=== PATIENT | female | born 1965 | race Caucasian/White ===

== ENCOUNTER 2021-02-19 05:12 | Inpatient (IN) ==
--- NOTE | 2021-01-21 08:26 | History & Physical Report ---
Date of Service January 21, 2021 date of surgery: 02/19/21 Procedure: Right Total Knee Arthroplasty Surgeon: Kenneth Diaz Assessment & Plan (1) Arthritis of right knee: Plan: Risks and benefits of procedure discussed in detail today, patient would like to proceed with a Right total knee replacement at [facility] as scheduled. will obtain medical clearance from Dr Carson prior to surgery as well as obtain PATs at [facility]. Will place on ASA 81mg po bid x 1 month post op, f/u 2 weeks post op for routine post-operative care and x-ray, sooner if having any problems. will make arrangements for HHPT at the time of discharge. At this point in time, has failed conservative measures and would like to proceed with surgical intervention. The risks and benefits have been discussed including, but not limited to, risk of infection, nerve injury, stiffness, loss of motion, failure to improve, etc. Reasonable outcomes and options of treatment were discussed. An explanation of appropriate alternatives to the procedure that may be advantageous were discussed and their risks and benefits, as well as the risks and benefits of not proceeding with treatment. I offered to answer any additional inquiries concerning the treatment involved. All the patient's questions were answered. The patient is agreeable, understanding of the treatment plan and alternatives, and wishes to proceed with the treatment plan. History of Present Illness Chief Complaint: Right knee pain Primary Care Provider: RONIT PCP Mirella is a 55 year old female who complains of right knee pain, presents for pre-op evaluation prior to a right total knee replacement by Dr Diaz at [facility]. she complains of pain, decreased range of motion, instability and stiffness in her right knee. Currently the patient states that the symptoms are moderate- severe and is described as aching, sharp and throbbing. her symptoms occur continuously and currently rated at 7/10. The symptoms are aggravated by ascending stairs, daily activities, first steps while awake walking. Prior NSAIDs include IBU, Meloxicam and Aleve. she has been treated with previous cortisone and visco injections in the past without much relief. Allergies Allergy/AdvReac Type Severity Reaction Status Date / Time No Known Allergies Allergy Unverified 01/21/21 10:17 Home Medications Medication Instructions Recorded Confirmed Type acetaminophen 500 mg tablet 500 mg PO QID PRN 01/21/21 01/21/21 History (Tylenol Extra Strength) valsartan 160 mg capsule 160 mg PO QAM 01/21/21 01/21/21 History Past Med/Surg History Medical History GERD (gastroesophageal reflux disease) diet controlled HTN (hypertension) Morbid obesity with BMI of 45.0-49.9, adult Osteoarthritis Snores Spinal stenosis Surgical History History of x 2 History of colonoscopy History of lumbar fusion History of ovarian cystectomy History of tonsillectomy Family History Other No family history of adverse response to anesthesia Social History Smoking Status: Never smoker Second Hand Exposure: Yes (hx); Do You Dip or Chew Tobacco: No; Hx Alcohol Use: Yes Hx Substance Use: No Preferred Language: Burundian Communication Ability: Effective Trapeze Artist Required: No Beliefs That Will Affect Care: None Current Living Situation Comment: pt and her children Feels Safe at Home: Yes Safety Concerns: Feels Safe At This Time Assistive Devices: Cane and Glasses Review of Systems Review of Systems: All systems reviewed & are unremarkable except as noted in HPI & below Constitutional: no fever, no chills and no sweats Respiratory: no cough and no dyspnea Cardiovascular: no chest pain, no dyspnea and no orthopnea Gastrointestinal: no abdominal pain, no nausea and no vomiting Musculoskeletal: as per Subjective / HPI Physical Exam Physical Exam: HT: 5'4" WT: 288lb Pulse: 85 BP: 177/99 Constitutional: WD/WN, vitals as above no acute distress Respiratory: normal respiratory effort, lungs clear to auscultation no respiratory distress, no labored breathing and does not use accessory muscles Cardiovascular: RRR, no murmur, no edema Gastrointestinal (Abdomen): normal bowel sounds, soft, nontender, no hepatosplenomegaly Musculoskeletal: Knee: + knee abnormal to inspection (RIGHT KNEE- ), + effusion (+1 effusion), + limited ROM of knee (ROM 0/3/110), + knee ROM with crepitation, + joint line tenderness (medial joint line) and + Valeria's sign positive; no deformity, no skin erythema, no ecchymosis, no valgus laxity, no varus laxity, anterior drawer test negative, Ramón's sign negative and pivot shift test negative Results & Data Results & Data ([facility]) Diagnostic Findings Right Knee X-ray: Right knee series showing advanced degenerative changes to the right knee, narrowing of the medial compartment and patello-femoral joint with patellar spurring noted, findings showing joint space narrowing of the medial compartment and patello-femoral joint, osteophyte formation and subchondral sclerosis noted. overall varus alignment. no acute bony pathology noted.
--- NOTE | 2021-01-21 11:35 | PAT Medication Instructions ---
Medication Instructions Date of Service January 21, 2021 Home Medications acetaminophen 500 mg tablet (Tylenol Extra Strength) 500 mg PO QID PRN valsartan 160 mg capsule 160 mg PO QAM DO NOT take the morning of surgery valsartan 160 mg capsule 160 mg PO QAM Take morning of surgery With a small sip of water, OTHERWISE NOTHING TO EAT OR DRINK AFTER MIDNIGHT: acetaminophen 500 mg tablet (Tylenol Extra Strength) 500 mg PO QID PRN (okay to take up to 4 hours prior to surgery if needed) Take evening before surgery acetaminophen 500 mg tablet (Tylenol Extra Strength) 500 mg PO QID PRN (if needed) Other Notes If you have any questions please call us at [phone] or [phone] or [phone] or [phone]
--- NOTE | 2021-01-23 08:24 | Anesthesiology Consultation ---
Date of Service January 23, 2021 Assessment & Plan (1) Encounter for pre-operative examination: - PCP pre-op evaluation 01/30/2021. - check urine am DOS. - Outpatient joint assessment: Patient is currently scheduled for inpatient pathway. If re-evaluated pending system levels during current pandemic/surgeon requests outpatient pathway, patient is not recommended candidate for outpatient joint program from anesthesia standpoint. - COVID screening: Per assessment on 01/23/2021: Travel screen negative, no known COVID-19 positive contacts or current COVID-19 related symptoms. Surgeon arranging preop COVID testing, scheduled 02/25/2021 [place]. Awaiting results. Chart Review Chart Review: Acceptable Risk for Surgery (pending most recent PCP note) and Patient seen in Pre Admission Testing Teaching & Discussion Pre-Anesthesia Teaching/Discussion Notes: Instructed NPO after midnight before surgery, except medications with 15 cc of water. Medication instructions provided according to the PAT guidelines. History Surgery Operation Date: 02/19/21 07:15 Proposed Procedures p Right Total Knee Arthroplasty - Kenneth Diaz DO Height/Weight Height: 5 ft 4 in Weight: 130.6 kg Allergies Allergy/AdvReac Type Severity Reaction Status Date / Time No Known Allergies Allergy Unverified 01/21/21 10:17 Medications Home Medications Medication Instructions Recorded Confirmed Last Taken acetaminophen 500 mg tablet 500 mg PO QID PRN 01/21/21 01/21/21 Unknown (Tylenol Extra Strength) valsartan 160 mg capsule 160 mg PO QAM 01/21/21 01/21/21 Unknown Past Medical History Medical History (Updated 01/23/21 @ 08:46 by Maira Rowley PA-C) GERD (gastroesophageal reflux disease) occasional, diet controlled History of blood transfusion post-op 1984 HTN (hypertension) controlled, stable per pt Morbid obesity with BMI of 45.0-49.9, adult Osteoarthritis Snores Snores, occasionally snores herself awake, pt "suspects sleep apnea" denies sleep studies Spinal stenosis Patient denies h/o stroke, seizures, heart attack, heart failure, DM, or blood clots. Exercise / Class Metabolic Activity II 4-5 Yardwork/Stairs/Walk up hill (denies CP or SOB with 1 FOS, taken slowly due to bilat knee pain at this time) Past Family History Family History Other No family history of adverse response to anesthesia Past Surgical History Surgical History History of x 2 History of colonoscopy History of lumbar fusion History of ovarian cystectomy History of tonsillectomy Past Anesthesia History No Hx of Anesthesia Complications and No Family Hx of Anesthesia Complications History of PONV History of PONV (after a ) and Hx of Motion Sickness Social History Smoking Status: Never smoker Do You Dip or Chew Tobacco: No Hx Alcohol Use: Yes alcohol intake frequency: holidays/special occasions only Hx Substance Use: No substance use type: does not use Review of Systems Patient denies chest pain, shortness of breath, dyspnea on exertion, fever, chills, cough, wheezing, or palpitations. Physical Exam Vital Signs Vitals BP 137/89 P 69 TEMP 98.6 SP02 97% on RA RESP 17 Physical Full cervical extension range of motion without pain Full TMJ range of motion TMD 3 finger breaths Mallampati Score 3 Dentition: intact, denies missing, chipped or loose teeth, caps/crowns, implants or bridges Lungs: normal respiratory effort. Clear throughout to auscultation, no adventitious breath sounds Cardiac: regular rate and rhythm, no murmurs noted Carotid arteries: negative bruit bilat Extremities: no distal extremity edema Lab Results Anesthesia Preop Results Results Anesthesia Widget: WBC 10.58 K/uL (4.8-10.8) 01/23/21 Hgb 15.1 g/dL (12.0-16.0) 01/23/21 Hct 45.8 % (37-47) 01/23/21 Plt 317 K/uL (130-400) 01/23/21 Na 140 mmol/L (136-145) 01/23/21 K 4.7 mmol/L (3.5-5.1) 01/23/21 Cl 108 mmol/L (98-107) H 01/23/21 CO2 27 mmol/L (21-32) 01/23/21 BUN 15 mg/dl (7-18) 01/23/21 Creat 0.73 mg/dl (0.6-1.2) 01/23/21 Glucose Level 103 mg/dl (70-99) H 01/23/21 PT 10.3 Seconds (9.0-12.0) 01/23/21 PTT 27.7 Seconds (21.0-31.0) 01/23/21 INR 1.0 (0.9-1.1) 01/23/21 HA1c 5.8 % (4.5-5.6) H 01/23/21 Urine Color Dark Yellow 01/23/21 Urine Appearance Clear (Clear) 01/23/21 Urine pH 5.5 (4.5-7.5) 01/23/21 Urine Specific Presto 1.027 (1.000-1.030) 01/23/21 Urine Protein Negative (Negative) 01/23/21 Urine Glucose (UA) Negative (Negative) 01/23/21 Urine Ketones Negative (Negative) 01/23/21 Urine Blood Negative (Negative) 01/23/21 Urine Nitrite Negative (Negative) 01/23/21 Urine Bilirubin Negative (Negative) 01/23/21 Urine Urobilinogen Negative (Negative) 01/23/21 Urine Leukocyte Esterase 1+ (Negative) H 01/23/21 Urine WBC (Auto) 10-30 /hpf (0-5) H 01/23/21 Urine RBC (Auto) 5-10 /hpf (0-4) H 01/23/21 Urine Hyaline Casts (Auto) 1-5 /lpf (0-5) 01/23/21 Urine Epithelial Cells (Auto) 10-20 /lpf (0-5) H 01/23/21 Urine Bacteria (Auto) Negative (Negative) 01/23/21 Blood Type A Positive 01/23/21 Antibody Screen NEGATIVE 01/23/21 Testing Electrocardiogram Date: 01/23/21 Normal sinus rhythm, rate 63 bpm. "Normal ECG" Inverted T waves have replaced nonspecific T wave abnormality in inferior leads. Nonspecific v isolated T wave changes in lead III, nonspecific changes in II and aVF. Chest X-Ray Date: 01/23/21 No acute process.
[2021-02-19] MEDS ORDERED: FAMOTIDINE 20 MG TAB PO SCH (06:00)
[2021-02-19] MEDS ORDERED: METOCLOPRAMIDE HCL 10 MG TABLET PO SCH (06:00)
[2021-02-19] MEDS ORDERED: TRANEXAMIC ACID 1,000 MG **IV Pre-op IV SCH (06:00)
[2021-02-19] MEDS ORDERED: GABAPENTIN 900 MG DOSE PO SCH (06:00)
[2021-02-19] MEDS ORDERED: ROPIVACAINE 0.5% HCL/PF 150 MG, BUPIVACAINE 0.75% MPF 20 ML, EPINEPHrine 30MG/30ML (OR ... INSTIL SCH (06:00)
[2021-02-19] MEDS ORDERED: LR 500ML BOLUS, THEN 15ML/HR IV SCH (06:00)
[2021-02-19] MEDS ORDERED: CeleBREX 200 MG CAP PO SCH (06:00)
[2021-02-19] MEDS ORDERED: ACETAMINOPHEN 500 MG TAB PO SCH (06:00)
[2021-02-19] MEDS ORDERED: oxyCODONE HCL 10 MG TABCR (OxyCONTIN) PO SCH (06:00)
[2021-02-19] MEDS ORDERED: TRANEXAMIC ACID 1,000 MG **IV Intra-op IV SCH (06:00)
[2021-02-19] MEDS ORDERED: KETAMINE 50 MG/5 ML SYRINGE ONE (06:22)
[2021-02-19] MEDS ORDERED: MIDAZOLAM HCL 1 MG/ML 2ML VIAL ONE (06:22)
[2021-02-19] MEDS ORDERED: fentaNYL citrate 100 MCG/2 ML VIAL ONE (06:22)
[2021-02-19] MEDS ORDERED: EPINEPHrine INJ 1 MG/ML AMP ONE (06:24)
[2021-02-19] MEDS ORDERED: BUPIVACAINE 0.5 % 5 MG/1 ML PF 10ML VIAL ONE (06:24)
[2021-02-19] MEDS ORDERED: ROPIVACAINE 0.5% 5 MG/ML 30 ML VIAL ONE (06:25)
[2021-02-19] MEDS ORDERED: ORTHO JOINT ANESTHETIC ONE (07:02)
--- NOTE | 2021-02-19 07:18 | History & Physical Bridge Note ---
Date of Service February 19, 2021 History & Physical Bridge Note I have examined the patient, reviewed the History & Physical and in the interval since the performance of the History & Physical I have noted the following changes of clinical significance: no changes noted
[2021-02-19] MEDS ORDERED: LIDOCAINE 2% 2 ML VIAL/AMP(20MG/ML) INFIL ONE (07:51)
[2021-02-19] MEDS ORDERED: PHENYLEPHRINE 100MCG/ML 5ML SYR ONE (07:51)
[2021-02-19] MEDS ORDERED: PROPOFOL IV EMULSION 10 MG/ML 20 ML VIAL IV ONE ×3 (07:51→08:23)
[2021-02-19] MEDS ORDERED: ONDANSETRON INJ 2 MG/ML 2 ML VIAL ONE (07:51)
[2021-02-19] MEDS ORDERED: KETOROLAC 30 MG/ML VIAL ONE (07:51)
[2021-02-19] MEDS ORDERED: DEXAMETHASONE SOD INJ 4 MG/ML VIAL ONE (07:51)
[2021-02-19] MEDS ORDERED: GLYCOPYRROLATE 0.2 MG/ML VIAL ONE (07:51)
[2021-02-19] MEDS ORDERED: ePHEDrine sulfate 50 MG/ML SYR ONE (08:12)
[2021-02-19] MEDS ORDERED: ePHEDrine sulfate 50 MG/ML AMP IV PRN (08:38)
[2021-02-19] MEDS ORDERED: ATROPINE SULFATE 0.1 MG/ML 10ML SYR IV PRN (08:38)
--- NOTE | 2021-02-19 08:53 | Operative Report ---
Post Operative Report Pre & Post Diagnosis Operation Date: 02/19/21 07:15 Pre-Op Diagnosis: Osteoarthritis, Right Knee Post-Op Diagnosis: Osteoarthritis, Right Knee I identified the patient and participated in the time-out.: Yes Procedure Operation Date: 02/19/21 07:15 Actual Procedures p Right Total Knee Arthroplasty(Right)Utilizing [employer] 2 patient matched size femur 6 tibia for poly Patella 32 15 utilizing [employer] 2 - Kenneth Diaz DO Surgeon Kenneth Diaz DO Policyholder Information Clerk Buzz LIU Estimated Blood Loss 5 Findings Consistent with Post-Op Diagnosis Patient presents with severe end-stage tricompartmental degenerative joint disease 10 degree flexion contracture varus alignment eburnated [id number] moderate marginal osteophyte subchondral sclerosis Specimens Bone and cartilage Drains Medium bore Hemovac Anesthesia Type MAC Epidural Regional Complications none Disposition Accompanied Patient To Recovery: No Disposition: Recovery Room Indications Patient presents with severe end-stage DJD failing Conservative Management Getting Physical Therapy Anti-Inflammatories Relative Rest Activity Modification Corticosteroid Injection of Viscosupplementation above Intraoperative Findings Were Noted Description of Procedure After proper prepping and draping of the Right lower extremity anterior midline incision was made over the region of the extensor extensor mechanism after meticulous hemostasis was obtained and maintained in subcutaneous tissues a medial parapatellar incision was made The patella was subluxed lateralward the medial lateral gutter were cleaned from any hypertrophic synovitis and scar tissue of the distal femoral block was placed and the distal femoral osteotomy cut was made subsequently the chamfers anterior and posterior osteotomy cuts were made utilizing the 4-in-1 block the tibia was subsequently subluxed an teriorward medial and ateral meniscal remnants were excised in their entirety remnants of the anterior and posterior cruciate ligaments were excised in their entirety excellent exposure of the proximal tibia was obtained the tibial osteotomy guide was placed on the proximal tibial osteotomy cut was made once again the knee was irrigated with copious amounts of sterile saline solution the patella was subsequently everted lateralward thickened scar tissue around the patella was removed the patella was subsequently cut utilizing a freehand technique and was drilled prepared for final preparation and placement of patella socially flexion-extension gaps were checked and the equal and symmetric trials were placed to the appropriate femoral and tibial trials with poly-spacer being placed for equal flexion and extension gaps and full range of motion including extension to 0 and flexion to 140 the trial components after having been taken to recovery range of motion was subsequently removed meticulous hemostasis was obtained and maintained subsequently a knee block injection of joint cocktail including ropivacaine 0.5% 150 mg. Bupivacaine 0.5% epinephrine 1-200,030 mL's toradol 30 mg dexamethasone 4 mg ketamine 10 mg clonidine 100 micrograms normal saline solution 30 mg was infiltrated into the soft tissues of the posterior knee medial lateral gutters and periosteal synovium special a ttention was paid to protect neurovascular structures at all times subsequently trial components having been removed the knee was irrigated with sterile saline solution. debris was removed the proximal tibia was subsequently prepared and was made ready for the placement of the tibial component tibial component was also cemented and tamped into position the femoral component was subsequently placed and cemented in the position the patellar component was subsequently cemented in position because hemostasis once again obtained and maintained wound having been thoroughly irrigated with debridement and debridement lavage was performed as well as a medial parapatellar incision closed with #1 Vicryl in interrupted fashion subcutaneous was closed with #2 Vicryl skin was closed with skin clips. PA-C was necessary for prepping and drapping as well as wound closure of deep fascia Sub cutaneous tissue and skin and was necessary for the case. A sterile compressive dressing was placed patient was taken to recovery in stable condition of report dictated by Joe I attest to the content of the Intraoperative Record and any orders documented therein. Any exceptions are noted below. I attest to the content of the Intraoperative Record and any orders documented therein. Any exceptions are noted below.
--- NOTE | 2021-02-19 10:08 | Anesthesiology Progress Note ---
Date of Service February 19, 2021 Anesthesia Post Procedure Vital Signs Vital Signs: Temp Pulse Pulse Resp BP Pulse Ox 02/19/21 09:55 36.4 C L 60 14 107/62 96 02/19/21 09:45 70 18 110/58 L 97 02/19/21 09:35 67 14 101/54 L 99 02/19/21 09:25 36.3 C L 89 16 101/62 97 02/19/21 05:44 37.3 C 97 H 18 131/73 95 Pain Intensity Right Knee: Pain Intensity: 1 Transfer of Care Handoff Completed per policy Notes Mental Status: alert / awake / arousable Patient Amnestic to Procedure: Yes Nausea / Vomiting: adequately controlled Pain: adequately controlled Airway Patency, RR, SpO2: stable & adequate BP & HR: stable & adequate Hydration State: stable & adequate Neuraxial Anesthesia: was administered and sensory block is resolving Anesthetic Complications: no major complications apparent
[2021-02-19] MEDS ORDERED: NALOXONE HCL 0.4 MG/1 ML VIAL/CARP IV PRN (10:20)
[2021-02-19] MEDS ORDERED: bisacodyL 10 MG SUPP PR PRN (10:20)
[2021-02-19] MEDS ORDERED: ONDANSETRON INJ 2 MG/ML 2 ML VIAL IV PRN (10:20)
[2021-02-19] MEDS ORDERED: SODIUM CHLORIDE 0.9% 1000ML 1,000 ML IV SCH (10:20)
[2021-02-19] MEDS ORDERED: MAGNESIUM HYDROXIDE SUSP 30 ML UDC PO PRN (10:20)
[2021-02-19] MEDS ORDERED: HYDROmorphone INJ 0.5 MG/0.5 ML SYR IV PRN (10:20)
--- NOTE | 2021-02-19 10:31 | XRay Report ---
XR knee RT 1 or 2V routine CLINICAL HISTORY: Surgical Post Op. Status post knee replacement COMPARISON STUDY: No previous studies for comparison. TECHNIQUE: 2 right knee views FINDINGS: The patient is status post total knee replacement. The prosthetic components are in anatomi c alignment with no acute abnormality seen. Air is present within the soft tissues from the procedure . Skin shaheen are seen anteriorly. Surgical drain is also present. IMPRESSION: Status post total knee replacement. ACT 112: Negative or not required by law. Electronically signed by: Kishore Martines M.D. 02/19/2021 10:30 AM
--- NOTE | 2021-02-19 10:35 | Hospitalist Consultation ---
Date of Consultation February 19, 2021 Assessment & Plan (1) Status post total right knee replacement: - Pain management, bowel regimen and DVT ppx per the primary team - PT/OT consults - Follow am CBC to monitor for acute blood loss, last hgb in Dec was 15.1 - Continue ASA 81 mg BID (2) HTN (hypertension): - May continue HCTZ, valsartan as per home medications - pt reports recently placed on these medications. (3) Prediabetes: - Last A1C = 5.8 on 01/23/21 - Not on any medication at home - Continue HH/DM II and discussed exercise and diet at bedside. Encouraged healthy snacking with substitue foods such as nuts, fruits without added sugar, vegetables. (4) Morbid obesity with BMI of 45.0-49.9, adult: - BMI of 49.2, diet and exercise to be encouraged as above DVT ppx: teds, scds, ASA81 mg BID Code: Full Dispo: From home, will remain in the hospital x 1-2 more days Thank you for involving us in the care of Ms. Ovalle. Please do not hesitate to call with questions or concerns. At this time medicine service will follow along. Supervising Physician Co-Signing Physician Notes Patient seen and examined Findings and plans as detailed by Cheyanne Scanlon PA-C History of Present Illness Reason for Consultation: Medical management Requesting Physician: Dr. Diaz Attending Physician: Kenneth Diaz DO History of Present Illness This is a 55 yo F with PMHx of osteoarthritis, Prediabetes, HTN, JOLENE, who presents for total right knee replacement by Dr. Diaz on 02/20/20. The patient is doing very well overall s/p surgery. Denies any pain, still a bit numb in her lower extremity by is able to move it without difficulty. Pt is tolerating water without difficulty, but has not trialed food yet. Last BM was this morning prior to surgery. Pt hasn't yet urinated since surgery. She lives at home with adult children who will be able to help her at home. She anticipates having outpatient PT/OT when she goes home. Pt also states she is aware of her elevated A1C and is going to attempt more diet and exercise since having knee surgery and increasing her mobility. Allergies Allergy/AdvReac Type Severity Reaction Status Date / Time No Known Allergies Allergy Verified 02/19/21 05:47 Home Medications Medication Instructions Recorded Confirmed Type acetaminophen 500 mg tablet 500 mg PO QID PRN 01/21/21 02/19/21 History (Tylenol Extra Strength) valsartan 160 mg capsule 160 mg PO QAM 01/21/21 02/19/21 History hydrochlorothiazide 25 mg PO QAM 02/12/21 02/19/21 History paroxetine HCl 20 mg PO QAM 02/12/21 02/19/21 History acetaminophen 500 mg tablet 1,000 mg PO Q8 14 Days #84 tab 02/19/21 Rx (Tylenol Extra Strength) aspirin 81 mg tablet,delayed 81 mg PO BID 30 Days #60 tab 02/19/21 Rx release cefadroxil 500 mg capsule 500 mg PO BID #28 cap 02/19/21 Rx Patient History Medical History (Updated 02/19/21 @ 10:38 by Cheyanne Scanlon PA-C) GERD (gastroesophageal reflux disease) occasional, diet controlled History of blood transfusion post-op 1984 HTN (hypertension) controlled, stable per pt Morbid obesity with BMI of 45.0-49.9, adult Osteoarthritis Prediabetes [facility] records Snores Snores, occasionally snores herself awake, pt "suspects sleep apnea" denies sleep studies Spinal stenosis Surgical History (Updated 02/19/21 @ 10:38 by Cheyanne Scanlon PA-C) History of x 2 History of colonoscopy History of lumbar fusion History of ovarian cystectomy History of tonsillectomy Family History Other No family history of adverse response to anesthesia Social History Smoking Status: Never smoker Second Hand Exposure: Yes (hx); Do You Dip or Chew Tobacco: No; Hx Alcohol Use: Yes Hx Substance Use: No Preferred Language: Turkish Communication Ability: Effective Crt Required: No Beliefs That Will Affect Care: None Current Living Situation Comment: pt and her children Feels Safe at Home: Yes Safety Concerns: Feels Safe At This Time Assistive Devices: Cane and Glasses Review of Systems Review of Systems: Constitutional: No fever, sweats or chills Eyes: No diplopia, no worsening or blurred vision ENT: normal hearing, no trouble swallowing Respiratory: No cough, sputum, dyspnea at rest or on exertion Cardiovascular: No chest pain, tightness or palpitations Abdomen: No pain, nausea, vomiting, diarrhea or constipation Musculoskeletal: No joint pain, calf pain, swelling Neurologic: No weakness, numbness/tingling, or balance problems Psychiatric: No anxiety or depression Skin: No rash or itch Physical Exam Physical Exam: General: awake, alert, no apparent distress, morbidly obese with BMI of 49.2 Head: Normocephalic, atraumatic ENT: PERRL, EOMI, no pharyngeal exudate, mucous membranes moist Chest: Clear to auscultation, on room air, no adventitious breath sounds Cardiac: Regular rate and rhythm, no murmur, no JVD, normal peripheral pulses, good capillary refill Abdominal: NABS x 4 quadrants, soft, nondistended, nontender to palpation, no rebound or guarding Extremities: RLE wrapped in NAVEEN, hemovac drain in place, icepack on. Sensation to light touch is intact but dull as anesthesia not worn off yet. Pt is able to move toes and ankles without difficulty. Otherwise, normal inspection, no peripheral edema or erythema, calfs nontender to palpation Psych: Normal mood and affect Neuro: AAO x 3, strength intact bilaterally and rated 5/5, no motor deficits, speech is clear, no peripheral sensory deficits Results & Data Results & Data ([facility]) Vital Signs (Past 12 Hours) Vital Signs Temp Pulse Pulse Resp BP Pulse Ox 02/19/21 10:05 72 14 100/67 96 02/19/21 09:55 36.4 C L 60 14 107/62 96 02/19/21 09:45 70 18 110/58 L 97 02/19/21 09:35 67 14 101/54 L 99 02/19/21 09:25 36.3 C L 89 16 101/62 97 02/19/21 05:44 37.3 C 97 H 18 131/73 95
[2021-02-19] MEDS: ACETAMINOPHEN 500 MG TAB PO SCH ×2 (13:25→22:07)
[2021-02-19] MEDS: ceFAZolin 2000MG 2,000 MG/15 ML SYR IV SCH ×2 (15:41→22:08)
[2021-02-19] MEDS: oxyCODONE HCL IR 5 MG TAB (IMMEDIATE RELEASE) PO PRN (18:16)
[2021-02-19] MEDS: ASPIRIN 81 MG ECTAB PO SCH (20:44)
[2021-02-19] MEDS: DOCUSATE SODIUM 100 MG CAP PO SCH (20:45)
[2021-02-19] MEDS ORDERED: SENNA 8.6 MG TAB PO SCH (21:00)
[2021-02-20] MEDS: oxyCODONE HCL IR 5 MG TAB (IMMEDIATE RELEASE) PO PRN ×4 (01:22→13:52)
[2021-02-20] MEDS: ACETAMINOPHEN 500 MG TAB PO SCH ×2 (05:29→13:52)
[2021-02-20 08:01] LABS: Hematocrit (blood only) 35.9 % (37-47); Hemoglobin 11.8 g/dL (12.0-16.0); Mean Corpuscular Hemoglobin 29.5 pg (25-34); Mean Corpuscular Hgb Conc 32.9 g/dL (32-36); Mean Corpuscular Volume 89.8 fL (80-100); Mean Platelet Volume 10.2 fL (7.4-10.4); Platelet Count 241 K/uL (130-400); RDW Coefficient of Variation 13.9 % (11.5-14.5); RDW Standard Deviation 46.2 fL (36.4-46.3); White Blood Count 15.82 K/uL (4.8-10.8)
[2021-02-20 08:26] LABS: BUN Creatinine Ratio 23.1 (10-20); Calcium 8.8 mg/dl (8.5-10.1); Creatinine Clr Calc Pharmacy 132.5 ml/min; Est GFR (African American) 116.7 ml/min; Est GFR (Non-African American) 100.7 ml/min; Potassium 3.6 mmol/L (3.5-5.1)
--- NOTE | 2021-02-20 08:29 | Orthopedic Progress Note ---
Date of Service February 20, 2021 Assessment & Plan (1) Arthritis of right knee: Plan: POD 1 s/p Right TKA PT/OT protocols. WBAT. DVT proph - ASA bid, SCD's, JO-ANN's Pain management as written DC planning - Pt trying to decide if she wants to have HH services vs. outpt PT. Admission and Anticipated Discharge Date Admission Date: February 19, 2021 Subjective POD 1 Pt sitting up in bed awake, alert. Eating breakfast currently. Pain controlled. Pt states she can tell block is wearing off. Denies SOB,CP, LH. Physical Exam Physical Exam: Dressings are C/D/I. Calves are soft,NT. NV intact. Toes mobile. Good DF/PF of right foot. HV drainage 150ml from the latest shift. Results & Data ([facility]) Vital Signs (Past 12 Hours) Vital Signs Temp Pulse Resp BP Pulse Ox 02/20/21 07:21 36.8 C 63 14 114/68 94 02/20/21 04:37 36.7 C 78 16 117/73 95 02/19/21 22:00 36.8 C 60 15 109/69 93
[2021-02-20] MEDS: ASPIRIN 81 MG ECTAB PO SCH (08:34)
[2021-02-20] MEDS: DOCUSATE SODIUM 100 MG CAP PO SCH (08:34)
[2021-02-20] MEDS ORDERED: PARoxetine HCL 20 MG TAB PO SCH (09:00)
[2021-02-20] MEDS ORDERED: MULTIVITAMIN TAB PO SCH (09:00)
[2021-02-20] MEDS ORDERED: VALSARTAN 80 MG TAB PO SCH (09:00)
--- NOTE | 2021-02-20 15:17 | Hospitalist Progress Note ---
Date of Service February 20, 2021 Assessment & Plan (1) Status post total right knee replacement: Plan: - Pain management, bowel regimen and DVT ppx per the primary team - PT/OT consults - Post op blood loss anemia noted, will need outpatietn follow up. - Continue ASA 81 mg BID per ortho (2) HTN (hypertension): Plan: - May continue HCTZ, valsartan as per home medications - pt reports recently pl aced on these medications. (3) Prediabetes: Plan: - Last A1C = 5.8 on 01/23/21 - Not on any medication at home - Continue HH/DM II and discussed exercise and diet at bedside. Encouraged healthy snacking with substitue foods such as nuts, fruits without added sugar, vegetables. (4) Morbid obesity with BMI of 45.0-49.9, adult: Plan: - BMI of 49.2, diet and exercise to be encouraged as above DVT ppx: teds, scds, ASA81 mg BID Code: Full Dispo: From home, will remain in the hospital x 1-2 more days Thank you for involving us in the care of Ms. Ovalle. Please do not hesitate to call with questions or concerns. At this time medicine service will follow along. Admission and Anticipated Discharge Date Admission Date: February 19, 2021 Subjective Patient was sitting up in chair, on room air, NAD, MARCO drain in situ with minimal serosanguineous collection, no acute events overnight. Patient denies previous SSSS visit palpitations/other review of symptoms. Patient reports pain under control. Patient moving gas but has not moved bowel. Physical Exam Physical Exam: GENERAL: Alert and oriented x3. NAD, on RA. HEENT: No pallor, no icterus. Pupils equal, round and reactive to light. Oral mucosa moist. NECK: No JVD, no neck masses. HEART: S1 and S2 heard. Regular rate and rhythm. No murmur, no gallop. RESPIRATORY SYSTEM: Normal AP diameter. No accessory muscle use. No wheezing, no crackles. ABDOMEN: Soft, bowel sounds present, nontender, no distention. CENTRAL NERVOUS SYSTEM: No facial droop. Speech is clear. Obeys simple commands. Moves extremities. EXTREMITIES: No edema, no erythema seen. Right knee dressings in situ with MARCO drain in situ with minimal serosanguineous collection. Results & Data Results & Data ([facility]) Vital Signs (Past 12 Hours) Vital Signs Temp Pulse Resp BP Pulse Ox 02/20/21 11:34 36.8 C 63 14 114/68 94 02/20/21 07:21 36.8 C 63 14 114/68 94 02/20/21 04:37 36.7 C 78 16 117/73 95
--- NOTE | 2021-02-21 11:33 | Discharge Summary ---
Date of Service February 21, 2021 Admission HPI Per Admitting Provider Mirella is a 55 year old female who complains of right knee pain, presents for pre-op evaluation prior to a right total knee replacement by Dr Diaz at [facility]. she complains of pain, decreased range of motion, instability and stiffness in her right knee. Currently the patient states that the symptoms are moderate- severe and is described as aching, sharp and throbbing. her symptoms occur continuously and currently rated at 7/10. The symptoms are aggravated by ascending stairs, daily activities, first steps while awake walking. Prior NSAIDs include IBU, Meloxicam and Aleve. she has been treated with previous cortisone and visco injections in the past without much relief. Admission Exam Per Admitting Provider Physical Exam: HT: 5'4" WT: 288lb Pulse: 85 BP: 177/99 Constitutional: WD/WN, vitals as above no acute distress Respiratory: normal respiratory effort, lungs clear to auscultation no respiratory distress, no labored breathing and does not use accessory muscles Cardiovascular: RRR, no murmur, no edema Gastrointestinal (Abdomen): normal bowel sounds, soft, nontender, no hepatosplenomegaly Musculoskeletal: Knee: + knee abnormal to inspection (RIGHT KNEE- ), + effusion (+1 effusion), + limited ROM of knee (ROM 0/3/110), + knee ROM with crepitation, + joint line tenderness (medial joint line) and + Valeria's sign positive; no deformity, no skin erythema, no ecchymosis, no valgus laxity, no varus laxity, anterior drawer test negative, Ramón's sign negative and pivot shift test negative Principal Diagnosis Right knee osteoarthritis Discharge Data Allergies Allergy/AdvReac Type Severity Reaction Status Date / Time No Known Allergies Allergy Verified 02/19/21 05:47 Consultations 02/14/21 11:46 Consult Hospitalist Routine Procedures Performed Operation Date: 02/19/21 07:15 Actual Procedures p Right Total Knee Arthroplasty(Right) - Kenneth Diaz DO Ordered Studies 02/19/21 05:00 US - OR guided needle placemen Routine Hospital Course (1) Arthritis of right knee: ADDENDUM 02/20/21 1118Addendum February 20, 2021 11:17 Progressing with PT. Pain controlled. Plan for dc to home today with HH services. Addendum Signed By: <Electronically signed by Buzz Hill PA-C> 02/20/211117 Addendum Cosigned By: <Electronically signed by Erickson Graff MD> 02/21/21721 Created: 02/20/2101/30/1118 Date of Service February 20, 2021 Assessment & Plan (1) Arthritis of right knee: Plan: POD 1 s/p Right TKA PT/OT protocols. WBAT. DVT proph - ASA bid, SCD's, JO-ANN's Pain management as written Hgb 11.8 DC planning - Pt trying to decide if she wants to have HH services vs. outpt PT. Admission and Anticipated Discharge Date Admission Date: February 19, 2021 Subjective POD 1 Pt sitting up in bed awake, alert. Eating breakfast currently. Pain controlled. Pt states she can tell block is wearing off. Denies SOB,CP, LH. Physical Exam Physical Exam: Dressings are C/D/I. Calves are soft,NT. NV intact. Toes mobile. Good DF/PF of right foot. HV drainage 150ml from the latest shift. Results & Data ([facility]) Vital Signs (Past 12 Hours) Vital Signs Temp Pulse Resp BP Pulse Ox 02/20/21 07:21 36.8 C 63 14 114/68 94 02/20/21 04:37 36.7 C 78 16 117/73 95 02/19/21 22:00 36.8 C 60 15 109/69 93 Total Time Total Time Spent Total Time Spent (In Minutes): 5 Discharge Plan Discharge Items Patient Disposition: Home - Home Health Services Reason For Visit: Osteoarthritis, Right Knee Discharge Diagnosis: Osteoarthritis Right Knee Activity: Per Instructions section Weightbearing: Right weightbearing Weightbearing Comment: as tolerated with walker Non-emergency contact: Surgeon Call non-emergency contact if: you have any medication questions, your pain is not controlled, your temperature is above 101.5 and your wound has increased redness Follow-up/Referrals: Kenneth Diaz DO [Surgeon] - 03/01/21 2:15 pm (Follow up in 2 weeks for your first wound check. Appointment with Samm Benavides PA-C) Lexis Carson PA-C [Primary Care Provider] - Diet: Regular Addtl Attending Provider Instructions: ACTIVITY RECOMMENDATIONS: SELF CARE INSTRUCTIONS AFTER TOTAL KNEE REPLACEMENT A. You may need to continue a physical therapy program after discharge from the hospital. There are several options available to you. Your doctor will assist you in selecting the best one for you. 1. An out-patient facility 2 to 3 times a week for therapy or home therapy. 2. Continue working on all exercises taught to you in the hospital. Your goals should be to increase bending of your knee to 90 degrees and beyond and to fully straighten your knee. B. You may progress at your own pace from walking with a walker or crutches to a cane; then to no assistive devices. C. Make walking a part of your daily routine. Be up as much as comfortable with rest periods throughout the day. Rest with leg elevation is very important. Use the ice wrap frequently for the first 3-4 weeks. D. There are no restrictions on activities. You may ride in a car, shop, participate in english drawer and all social activities. E. Wear the long elastic stockings (JO-ANN hose) 20 hours a day for 2 weeks after surgery. They can be removed several times a day for laundering and for a bath. F. You may shower, no tub baths until cleared by your doctor. SPECIAL CARE INSTRUCTIONS: VERY IMPORTANT TO READ AND REVIEW A. There are a few signs you need to watch for after you are home. Call [facility] [place] if you notice any of the followin. Increased severe knee pain. Some pain is expected especially when you exercise. 2. Increased swelling in your leg or knee; pain or swelling of the calf muscle in either lower leg. 3. Any fluid drainage from the incision. 4. Shortness of breath or chest pain. B. Please call [facility] at if you have any concerns or questions about your operation or recovery. The doctor or his nurse will return your call promptly. C. You must take antibiotics before dental work, bladder, bowel or other surgery. Your doctor will provide you with a permanent care to carry describing this precaution. IMPORTANT: * REMEMBER TO TAKE ASPIRIN, 81 MG, TWICE DAILY FOR 4 WEEKS UNLESS OTHERWISE DIRECTED. THIS IS YOUR BLOOD THINNER. * CALL IF INCREASED PAIN, REDNESS, DRAINAGE OR FEVER GREATER THAT 101. * WEAR JO-ANN HOSE 20 HOURS PER DAY FOR 2 WEEKS. * DERMABOND Prineo- This is a mesh tape dressing that is covered with glue. It should remain in place until the incision is properly healed, usually 10-14 days. This dressing is designed to naturally slough off. You may trim the excess mesh tape as it peels off. Incision may be briefly wet in a shower. Dry immediately by blotting with a clean, dry towel. Do not bath or swim until instructed by your doctor. Do not scratch, rub, or pick at the dressing. Do not apply any topical ointments or lotions until dressing is completely removed and/or instructed by your doctor. There may be a small piece of suture material at one end of your incision. Do not pull or trim this. If it is bothersome or catching on clothing, you may cover it with a band-aid. Call with any questions. . FOLLOW UP VISIT: If appointment is not already scheduled: Please call [facility] [place] to make a follow-up appointment for 2 weeks after your surgery at . Stand-Alone Forms: [facility] Guide To, Opioid Pain Management, Smoking Cessation Medications and DC Order Prescriptions: New aspirin 81 mg Tablet,Delayed Release (Dr/Ec) 81 mg PO BID 30 Days Qty: 60 RF: 0 acetaminophen [Tylenol Extra Strength] 500 mg Tablet 1,000 mg PO Q8 14 Days Qty: 84 RF: 0 cefadroxil 500 mg capsule 500 mg PO BID Qty: 28 RF: 1 polyethylene glycol 3350 [Miralax] 17 gram powder in packet 17 g PO DAILY PRN (Reason: constipation) Qty: 5 RF: 0 oxycodone 5 mg Tablet 5 mg PO Q4H MDD 6 PRN (Reason: pain) Qty: 30 RF: 0 Continued valsartan 160 mg Capsule 160 mg PO QAM RF: 0 hydrochlorothiazide 25 mg PO QAM RF: 0 paroxetine HCl 20 mg PO QAM RF: 0 Discontinued acetaminophen [Tylenol Extra Strength] 500 mg Tablet 500 mg PO QID PRN (Reason: Pain) RF: 0 Discharge Orders: Discharge Order (Routine); Ordered 02/20/21 Ordered By: Buzz Tamayo/Other Patient Handouts: DVT Post Op Prevention Admission Data Admit Date/Time: 02/19/21 09:32 Attending Provider: Kenneth Diaz Admit Provider: Kenneth Diaz Primary Care Provider: Lexis Carson Other Providers: Elvin Brown Other Interventions: Discharge Summary Assessment (RN) Last Done: 02/20/21 11:34
== END 2021-02-20 15:45 | disposition home health service (06) | DRG 470 ==
LOC: ASU 05:12 → 3E 05:12 → OBSVTOIN 09:32

== ENCOUNTER 2021-04-08 06:16 | Observation (INO) ==
--- NOTE | 2021-03-22 17:41 | History & Physical Report ---
Date of Service March 22, 2021 date of surgery: 04/10/21 Procedure: Left Total Knee Arthroplasty Surgeon: Kenneth Diaz Assessment & Plan (1) Arthritis of knee, left: Plan: Risks and benefits of procedure discussed in detail today, patient would like to proceed with a left total knee replacement at [facility] as scheduled. will obtain medical clearance from Dr Carson prior to surgery as well as obtain PATs at [facility]. Will place on ASA 81mg po bid x 1 month post op, f/u 2 weeks post op for routine post-operative care and x-ray, sooner if having any problems. will make arrangements for HHPT at the time of discharge. At this point in time, has failed conservative measures and would like to proceed with surgical intervention. The risks and benefits have been discussed including, but not limited to, risk of infection, nerve injury, stiffness, loss of motion, failure to improve, etc. Reasonable outcomes and options of treatment were discussed. An explanation of appropriate alternatives to the procedure that may be advantageous were discussed and their risks and benefits, as well as the risks and benefits of not proceeding with treatment. I offered to answer any additional inquiries concerning the treatment involved. All the patient's questions were answered. The patient is agreeable, understanding of the treatment plan and alternatives, and wishes to proceed with the treatment plan. History of Present Illness Chief Complaint: left knee pain Primary Care Provider: Kenneth Diaz DO Vu is a 55 year old female who complains of left knee pain, presents for pre-op evaluation prior to a left total knee replacement by Dr Diaz at [facility]. she complains of pain and stiffness in her lef knee. Currently the patient states that the symptoms are moderate-severe and is described as aching, sharp and throbbing. her symptoms occur continuously and currently rated at 6/10. The symptoms are aggravated by ascending stairs, daily activities, first steps while awake walking. Prior NSAIDs include IBU, Meloxicam and Aleve. she has been treated with previous cortisone and visco injections in the past without much relief. Allergies Allergy/AdvReac Type Severity Reaction Status Date / Time No Known Allergies Allergy Verified 02/19/21 05:47 Home Medications Medication Instructions Recorded Confirmed Type valsartan 160 mg capsule 160 mg PO QAM 01/21/21 02/19/21 History hydrochlorothiazide 25 mg PO QAM 02/12/21 02/19/21 History paroxetine HCl 20 mg PO QAM 02/12/21 02/19/21 History cefadroxil 500 mg capsule 500 mg PO BID #28 cap 02/19/21 Rx oxycodone 5 mg tablet 5 mg PO Q4H PRN #30 tab MDD 6 02/20/21 Rx polyethylene glycol 3350 17 gram 17 g PO DAILY PRN #5 ea 02/20/21 Rx oral powder packet (Miralax) Past Med/Surg History Medical History GERD (gastroesophageal reflux disease) occasional, diet controlled History of blood transfusion post-op 1984 HTN (hypertension) controlled, stable per pt Morbid obesity with BMI of 45.0-49.9, adult Osteoarthritis Prediabetes [facility] records Snores Snores, occasionally snores herself awake, pt "suspects sleep apnea" denies sleep studies Spinal stenosis Surgical History History of x 2 History of colonoscopy History of lumbar fusion History of ovarian cystectomy History of tonsillectomy Family History Other No family history of adverse response to anesthesia Social History Smoking Status: Never smoker Second Hand Exposure: Yes (hx); Hx Alcohol Use: Yes Hx Substance Use: No Preferred Language: Djiboutian Communication Ability: Effective Pathology Laboratory Technologist Required: No Beliefs That Will Affect Care: None Current Living Situation Comment: pt and her children Feels Safe at Home: Yes Assistive Devices: None Review of Systems Review of Systems: All systems reviewed & are unremarkable except as noted in HPI & below Constitutional: no fever, no chills and no sweats Respiratory: no cough and no dyspnea Cardiovascular: no chest pain, no dyspnea and no orthopnea Gastrointestinal: no abdominal pain, no nausea and no vomiting Musculoskeletal: as per Subjective / HPI Physical Exam Physical Exam: HT: 64 inches WT: 288 pounds BP: 130/74 Constitutional: WD/WN, vitals as above no acute distress Respiratory: normal respiratory effort, lungs clear to auscultation no respiratory distress, no labored breathing and does not use accessory muscles Cardiovascular: RRR, no murmur, no edema Gastrointestinal (Abdomen): normal bowel sounds, soft, nontender, no hepatosplenomegaly Musculoskeletal: Knee: + knee abnormal to inspection (LEFT KNEE), + effusion (+1 effusion), + limited ROM of knee (ROM 0/3/110), + knee ROM with crepitation, + joint line tenderness (medial joint line) and + Valeria's sign positive; no deformity, no skin erythema, no ecchymosis, no valgus laxity, no varus laxity, anterior drawer test negative, Ramón's sign negative and pivot shift test negative Results & Data Results & Data ([facility]) Diagnostic Findings Left Knee X-ray: left knee series confirm advanced degenerative changes to the left knee, greatest medial compartments and patellofemoral joint, showing joint space narrowing, osteophyte formation and subchondral sclerosis. no acute bony pathology noted.
--- NOTE | 2021-04-05 10:37 | Anesthesiology Consultation ---
Date of Service April 05, 2021 Assessment & Plan (1) Encounter for pre-operative examination: Chart Review Chart Review: Acceptable Risk for Surgery and Patient NOT seen in Pre Admission Testing Pt requiring admission post operatively. Plan for recheck with COVID Ortiz AM DOS due to possibility that patient may have a roommate. OR aware. Ortiz order placed - Check test AM DOS Per nursing assessment 04/05/2021, patient denies any recent travel. No known Covid infection in the past 90 days. Patient is not vaccinated for Covid. No known Covid positive exposures or Covid related symptoms. Preop Covid test 04/04/21= negative Right TKA 02/19/2021 = Done under SAB at L3-4 with 4 attempts Patient seen by PCP 01/30/2021 = seen prior to right total knee replacement. Patient is cleared to proceed with surgery and general anesthesia. Consults Requested none ASA ASA3 Proposed Anesthesia Anesthesia Type: MAC Spinal Regional Regional Laterality: Left Site: Adductor Canal Risk / Benefits Reviewed With: PT / POA / Parent / Guardian, Accepts Plan and In formed Consent Obtained History Surgery Operation Date: 04/08/21 08:35 Proposed Procedures p Left Total Knee Arthroplasty - Kenneth Diaz DO Height/Weight Height: 5 ft 4 in Weight: 130.635 kg Allergies Allergy/AdvReac Type Severity Reaction Status Date / Time No Known Allergies Allergy Verified 04/08/21 06:57 Medications Home Medications Medication Instructions Recorded Confirmed Last Taken valsartan 160 mg capsule 160 mg PO QAM 01/21/21 04/08/21 04/07/21 07:00 polyethylene glycol 3350 17 gram 17 g PO DAILY PRN #5 ea 02/20/21 04/08/21 Unknown oral powder packet (Miralax) hydrochlorothiazide 25 mg tablet 25 mg PO QAM 04/05/21 04/08/21 04/07/21 07:00 paroxetine HCl 20 mg tablet 20 mg PO QAM 04/05/21 04/08/21 04/07/21 07:00 Active Medications Generic Name Dose Route Start Last Admin Trade Name Freq PRN Reason Stop Dose Admin Acetaminophen 1,000 mg 04/08/21 06:00 04/08/21 06:52 Acetaminophen 500 Mg Tab PO 04/08/21 18:00 1,000 mg PREOP KURT Administration Celecoxib 200 mg 04/08/21 06:00 04/08/21 06:52 Celebrex 200 Mg Cap PO 04/08/21 18:00 200 mg PREOP KURT Administration Famotidine 20 mg 04/08/21 06:00 04/08/21 06:52 Famotidine 20 Mg Tab PO 04/08/21 18:00 20 mg PREOP KURT Administration Gabapentin 900 mg 04/08/21 06:00 04/08/21 06:52 Gabapentin 900 Mg Dose PO 04/08/21 18:00 900 mg PREOP KURT Administration Lactated Ringer's 1,000 mls @ 15 mls/hr 04/08/21 06:00 04/08/21 06:53 Lr IV 04/08/21 18:00 15 mls/hr .Q24H KURT Administration Metoclopramide HCl 10 mg 04/08/21 06:00 04/08/21 06:52 Metoclopramide Hcl 10 Mg Tablet PO 04/08/21 18:00 10 mg PREOP KURT Administration Oxycodone HCl 10 mg 04/08/21 06:00 04/08/21 06:52 Oxycodone Hcl 10 Mg Tabcr (Oxycontin) PO 04/08/21 18:00 10 mg PREOP KURT Administration NPO Date Last Intake of Fluids: 04/08/21 Time Last Intake of Fluids: 00:00 Date Last Intake of Solids: 04/08/21 Time Last Intake of Solids: 00:00 Past Medical History Medical History GERD (gastroesophageal reflux disease) Occasional, diet controlled History of blood transfusion Post-op 1984 HTN (hypertension) Controlled, stable per pt Morbid obesity with BMI of 45.0-49.9, adult Osteoarthritis Prediabetes [facility] records Snores Snores, occasionally snores herself awake, pt "suspects sleep apnea" denies sleep studies Spinal stenosis Exercise / Class Metabolic Activity II 4-5 Yardwork/Stairs/Walk up hill Past Family History Family History Other No family history of adverse response to anesthesia Past Surgical History Surgical History History of arthroplasty of right knee (02/19/21) History of x 2 History of colonoscopy History of lumbar fusion History of ovarian cystectomy History of tonsillectomy Past Anesthesia History No Hx of Anesthesia Complications and No Family Hx of Anesthesia Complications History of PONV No Hx of PONV and No Hx of Motion Sickness Social History Smoking Status: Never smoker Hx Alcohol Use: Yes alcohol intake frequency: holidays/special occasions only Hx Substance Use: No substance use type: does not use Physical Exam Vital Signs Last Vital Signs Temp 99.5 F 04/08/21 06:58 Pulse 83 04/08/21 06:58 Resp 20 04/08/21 06:58 BP 128/77 04/08/21 06:58 Pulse Ox 95 04/08/21 06:58 ENMT Mouth: no dentition abnormality Thyromental Distance: > or= 3.5 Finger Breadths Mallampati Class: II Neck normal visual inspection Respiratory normal respiratory effort Auscultation: lungs clear to auscultation bilaterally Cardiovascular Rate/Rhythm: regular rate and regular rhythm Lab Results Anesthesia Preop Results Results Anesthesia Widget: WBC 8.59 K/uL (4.8-10.8) 03/21/21 Hgb 12.7 g/dL (12.0-16.0) 03/21/21 Hct 39.6 % (37-47) 03/21/21 Plt 329 K/uL (130-400) 03/21/21 Na 141 mmol/L (136-145) 03/21/21 K 3.8 mmol/L (3.5-5.1) 03/21/21 Cl 104 mmol/L (98-107) 03/21/21 CO2 29 mmol/L (21-32) 03/21/21 BUN 22 mg/dl (6-23) 03/21/21 Creat 0.57 mg/dl (0.6-1.2) L 03/21/21 Glucose Level 88 mg/dl (70-99(Fasting)) 03/21/21 POC Glucose 119 mg/dl (70-99) H 04/08/21 PT 10.1 Seconds (9.0-12.0) 03/21/21 PTT 26.0 Seconds (21.0-31.0) 03/21/21 INR 1.0 (0.9-1.1) 03/21/21 HA1c 5.7 % (4.5-5.6) H 03/21/21 Urine Color Yellow 03/21/21 Urine Appearance Clear (Clear) 03/21/21 Urine pH 6.0 (4.5-7.5) 03/21/21 Urine Specific [place] 1.026 (1.000-1.030) 03/21/21 Urine Protein Negative (Negative) 03/21/21 Urine Glucose (UA) Negative (Negative) 03/21/21 Urine Ketones Negative (Negative) 03/21/21 Urine Blood Negative (Negative) 03/21/21 Urine Nitrite Negative (Negative) 03/21/21 Urine Bilirubin Negative (Negative) 03/21/21 Urine Urobilinogen Negative (Negative) 03/21/21 Urine Leukocyte Esterase Trace (Negative) H 03/21/21 Urine WBC (Auto) 10-30 /hpf (0-5) H 03/21/21 Urine RBC (Auto) 0-4 /hpf (0-4) 03/21/21 Urine Hyaline Casts (Auto) 1-5 /lpf (0-5) 03/21/21 Urine Epithelial Cells (Auto) >30 /lpf (0-5) H 03/21/21 Urine Bacteria (Auto) Negative (Negative) 03/21/21 Blood Type A Positive 04/08/21 Antibody Screen NEGATIVE 04/08/21 Testing Laboratory Results Blood Type A Positive 04/08/21 06:28 Antibody Screen NEGATIVE 04/08/21 06:28 04/08/21 06:38 POC Glucose 119 H 04/08/21 07:49 POC Ur Test NEG 03/21/21= URINE CULTURE: More than 3 types of organisms present, all high counts mixed probable skin cass. Electrocardiogram Date: 01/23/21 Normal sinus rhythm, rate 63 bpm. When compared to 2012 inverted T waves have replaced nonspecific T wave abnormality in inferior leads. Nonspecific isolated T wave changes in lead III, nonspecific changes in II and aVF per 01/23/21 anesthesia consultation (Pt had right TKA 02/19/21 without issues) Chest X-Ray Date: 01/23/21 No acute process.
[~2021-04-08 06:16] MED LIST: ACETAMINOPHEN 500 MG TAB PO SCH; CeleBREX 200 MG CAP PO SCH; FAMOTIDINE 20 MG TAB PO SCH; GABAPENTIN 900 MG DOSE PO SCH; LR 500ML BOLUS, THEN 15ML/HR IV SCH; METOCLOPRAMIDE HCL 10 MG TABLET PO SCH; ROPIVACAINE 0.5% HCL/PF 150 MG, BUPIVACAINE 0.75% MPF 20 ML, EPINEPHrine 30MG/30ML (OR ... INSTIL SCH; TRANEXAMIC ACID 1,000 MG **IV Intra-op IV SCH; TRANEXAMIC ACID 1,000 MG **IV Pre-op IV SCH; oxyCODONE HCL 10 MG TABCR (OxyCONTIN) PO SCH
[2021-04-08] MEDS ORDERED: BUPIVACAINE 0.5 % 5 MG/1 ML PF 10ML VIAL ONE (07:11)
--- NOTE | 2021-04-08 07:21 | History & Physical Bridge Note ---
Date of Service April 08, 2021 History & Physical Bridge Note I have examined the patient, reviewed the History & Physical and in the interval since the performance of the History & Physical I have noted the following changes of clinical significance: no changes noted
[2021-04-08] MEDS ORDERED: MIDAZOLAM HCL 1 MG/ML 2ML VIAL ONE (08:09)
[2021-04-08] MEDS ORDERED: fentaNYL citrate 100 MCG/2 ML VIAL ONE (08:09)
[2021-04-08] MEDS ORDERED: ePHEDrine sulfate 50 MG/ML AMP IV PRN (08:11)
[2021-04-08] MEDS ORDERED: ATROPINE SULFATE 0.1 MG/ML 10ML SYR IV PRN (08:11)
[2021-04-08] MEDS ORDERED: ONDANSETRON INJ 2 MG/ML 2 ML VIAL IV PRN ×2 (08:11→11:41)
[2021-04-08] MEDS ORDERED: fentaNYL citrate 100 MCG/2 ML VIAL IV PRN (08:11)
[2021-04-08] MEDS ORDERED: PROPOFOL IV EMULSION 10 MG/ML 20 ML VIAL IV ONE (08:13)
[2021-04-08] MEDS ORDERED: ORTHO JOINT ANESTHETIC ONE (08:49)
[2021-04-08] MEDS ORDERED: ceFAZolin 330 MG/ML 1 GM VIAL ONE (08:50)
[2021-04-08] MEDS ORDERED: ONDANSETRON INJ 2 MG/ML 2 ML VIAL ONE (09:22)
[2021-04-08] MEDS ORDERED: KETAMINE 50 MG/5 ML SYRINGE ONE (09:24)
[2021-04-08] MEDS ORDERED: PHENYLEPHRINE HCL 10 MG/ML VIAL ONE (09:46)
[2021-04-08] MEDS ORDERED: ePHEDrine sulfate 50 MG/ML SYR ONE (09:46)
--- NOTE | 2021-04-08 10:12 | Operative Report ---
Post Operative Report Pre & Post Diagnosis Operation Date: 04/08/21 08:35 Pre-Op Diagnosis: Osteoarthritis, Left Knee Post-Op Diagnosis: Osteoarthritis, Left Knee I identified the patient and participated in the time-out.: Yes Procedure Operation Date: 04/08/21 08:35 Actual Procedures p Left Total Knee Arthroplasty(Left) utilizing Alvares & NephNanoleaf journey 2 patient matched size 5 femur 5 tibia 10 poly 32 oval patella Kenneth Diaz DO Surgeon Kenneth Diaz DO Fried Cake Maker Samm LIU Estimated Blood Loss 5 Findings Consistent with Post-Op Diagnosis Patient presents with severe end-stage tricompartmental degenerative joint disease varus alignment subchondral eburnated [id number] varus alignment marginal osteophytes moderate to large effusion Specimens Bone and cartilage Drains Medium bore Hemovac Anesthesia Type MAC Spinal Regional Complications none Disposition Accompanied Patient To Recovery: No Disposition: Recovery Room Indications Patient presents with severe end-stage DJD left knee after failed attempted conservative management she presents for left total knee arthroplasty she is failed attempted corticosteroid injection viscosupplementation relative rest activity modification and the above intraoperative findings were noted Description of Procedure After proper prepping and draping of the left lower extremity anterior midline incision was made over the region of the extensor extensor mechanism after meticulous hemostasis was obtained and maintained in subcutaneous tissues a medial parapatellar incision was made The patella was subluxed lateralward the medial lateral gutter were cleaned from any hypertrophic synovitis and scar tissue of the distal femoral block was placed and the distal femoral osteotomy cut was made subsequently the chamfers anterior and posterior osteotomy cuts were made utilizing the 4-in-1 block the tibia was subsequently subluxed anteriorward medial and ateral meniscal remnants were excised in their entirety remnants of the anterior and posterior cruciate ligaments were excised in their entirety excellent exposure of the proximal tibia was obtained the tibial osteotomy guide was placed on the proximal tibial osteotomy cut was made once again the knee was irrigated with copious amounts of sterile saline solution the patella was subsequently everted lateralward thickened scar tissue around the patella was removed the patella was subsequently cut utilizing a freehand technique and was drilled prepared for final preparation and placement of patella socially flexion-extension gaps were checked and the equal and symmetric trials were placed to the appropriate femoral and tibial trials with poly-spacer being placed for equal flexion and extension gaps and full range of motion including extension to 0 and flexion to 140 the trial components after having been taken to recovery range of motion was subsequently removed meticulous hemostasis was obtained and maintained subsequently a knee block injection of joint cocktail including ropivacaine 0.5% 150 mg. Bupivacaine 0.5% epinephrine 1-200,030 mL's toradol 30 mg dexamethasone 4 mg ketamine 10 mg clonidine 100 micrograms normal saline solution 30 mg was infiltrated into the soft tissues of the posterior knee medial lateral gutters and periosteal synovium special attention was paid to protect neurovascular structures at all times subsequently trial components having been removed the knee was irrigated with sterile saline solution. debris was removed the proximal tibia was subsequently prepared and was made ready for the placement of the tibial component tibial component was also cemented and tamped into position the femoral component was subsequently placed and cemented in the position the patellar component was subsequently cemented in position because hemostasis once again obtained and maintained wound having been thoroughly irrigated with debridement and debridement lavage was performed as well as a medial parapatellar incision closed with #1 Vicryl in interrupted fashion subcutaneous was closed with #2 Vicryl skin was closed with skin clips. PA-C was necessary for prepping and drapping as well as wound closure of deep fascia Sub cutaneous tissue and skin and was necessary for the case. A sterile compressive dressing was placed patient was taken to recovery in stable condition of report dictated by Joe I attest to the content of the Intraoperative Record and any orders documented therein. Any exceptions are noted below.Due to the complex nature of the procedure, the entire surgery was performed with the operational assistance of NOE Arceo The volunteer services assistant, under direct supervision, was involved in the actual performance of all aspects of the surgical procedure including hemostasis, tissue retraction and incision, instrument management, patient positioning, and wound closure. I attest to the content of the Intraoperative Record and any orders documented therein. Any exceptions are noted below.
--- NOTE | 2021-04-08 11:24 | XRay Report ---
LEFT KNEE 2 VIEWS History: Left total knee arthroplasty. Degenerative arthritis. Postop. FINDINGS: The patient is status post a left total knee arthroplasty. The hardware is intact. No fract ure or dislocation. Surgical drains are in place. Linear lucency at the fibular neck is likely due to overlapping soft tissue. IMPRESSION: Left total knee arthroplasty. No evidence for hardware complication. ACT 112: Negative or not required by law. Electronically signed by: Gianni Orellana M.D. 04/08/2021 11:23 AM
[2021-04-08] MEDS ORDERED: POLYETHYLENE (MIRALAX) 17 GM PACK PO PRN (11:41)
[2021-04-08] MEDS ORDERED: diphenhydrAMINE Capsule 25 MG CAP PO PRN (11:41)
[2021-04-08] MEDS ORDERED: METOCLOPRAMIDE HCL INJ 5 MG/ML 2 ML VIAL IV PRN (11:41)
[2021-04-08] MEDS ORDERED: MAGNESIUM HYDROXIDE SUSP 30 ML UDC PO PRN (11:41)
[2021-04-08] MEDS ORDERED: NALOXONE HCL 0.4 MG/1 ML VIAL/CARP IV PRN (11:41)
[2021-04-08] MEDS ORDERED: bisacodyL 10 MG SUPP PR PRN (11:41)
[2021-04-08] MEDS ORDERED: HYDROmorphone INJ 1 MG/ML SYRINGE IV PRN (11:41)
[2021-04-08] MEDS: KETOROLAC 30 MG/ML VIAL IV SCH ×2 (12:11→17:42)
[2021-04-08] MEDS: SODIUM CHLORIDE 0.9% 1000ML 1,000 ML IV SCH ×2 (12:11→21:58)
[2021-04-08] MEDS: ACETAMINOPHEN 500 MG TAB PO SCH ×2 (13:31→21:12)
--- NOTE | 2021-04-08 15:01 | Hospitalist Consultation ---
Date of Consultation April 08, 2021 Assessment & Plan (1) Arthritis of knee, left: POD #0 left TKA - Pain control, PT/OT, DVT prophylaxis per primary team - repeat H&H in AM to monitor for stability post-procedure - Encourage OOB as tolerated (2) HTN (hypertension): - May continue valsartan as per home medications - would resume HCTZ once tolerating oral intake (3) Prediabetes: Last A1C = 5.8 on 01/23/21 - Diabetic diet - continue to follow with PCP outpatient (4) Morbid obesity with BMI of 45.0-49.9, adult: Pt seen and reviewed with collaborating physician, Dr. Vázquez. Plan of care discussed and as outlined above. Thank you for this consultation. We will continue to follow this patient with you. [facility] via [employer]. Please don't hesitate to reach out with questions. Anne Marie Munguia PA-C Supervising Physician Co-Signing Physician Notes Patient is a 55-year-old female with history of osteoarthritis, hypertension, generalized anxiety disorder, prediabetes and other medical problems was consulted for postop medical management after having left total knee arthroplasty. Patient is doing well postoperatively. She denies any significant pain at surgical site. Also denies any chest pain, shortness of breath, dizziness, nausea, abdominal pain, tingling or numbness of the lower extremity. On exam patient is morbidly obese, no apparent distress, normocephalic atraumatic, EOMI, normal breath sounds, clear to auscultation, S1- S2, no murmur, no pedal edema, abdomen soft, nontender, normal bowel sounds, alert, awake, oriented, grossly no focal deficits, left lower extremity surgical site in dressing. Postop state. S/P left TKA pain. Monitor for postop anemia. Continue bowel regimen to prevent constipation. PT OT when appropriate. DVT prophylaxis as per primary team. Incentive spirometry. Blood pressure is stable. Resume HCTZ when able. Continue valsartan. I personally reviewed the record. Patient is interviewed and examined at bedside. Patient's care is coordinated with Leilani Munguia PA-C. Please refer to the documentation above for details of patient's presentation and for discussion of other issues. History of Present Illness Reason for Consultation: Post-operative Medical Management Requesting Physician: Kenneth Diaz DO Attending Physician: Kenneth Diaz DO History of Present Illness This is a 55 yo F with a PMH of osteoarthritis, Prediabetes, HTN, and JOLENE, who presents for a left total knee replacement today, having undergone a right TKR last month. She recovered from her prior TKR without significant difficulty. She is feeling well at present post-operatively without any specific complaints. She denies any significant pain, numbness or tingling in her LE. She is able to move both of her feet. She denies CP, palpitations, SOB, N/V, ST, KHAN or dizziness. She lives at home with adult children who will be able to help her at home and anticipates being discharged tomorrow if all goes well overnight. She denies any significant medical changes since seen last month after the right TKR. Allergies Allergy/AdvReac Type Severity Reaction Status Date / Time No Known Allergies Allergy Verified 04/08/21 06:57 Home Medications Medication Instructions Recorded Confirmed Type valsartan 160 mg capsule 160 mg PO QAM 01/21/21 04/08/21 History polyethylene glycol 3350 17 gram 17 g PO DAILY PRN #5 ea 02/20/21 04/08/21 Rx oral powder packet (Miralax) hydrochlorothiazide 25 mg tablet 25 mg PO QAM 04/05/21 04/08/21 History paroxetine HCl 20 mg tablet 20 mg PO QAM 04/05/21 04/08/21 History Patient History Medical History GERD (gastroesophageal reflux disease) Occasional, diet controlled History of blood transfusion Post-op 1984 HTN (hypertension) Controlled, stable per pt Morbid obesity with BMI of 45.0-49.9, adult Osteoarthritis Prediabetes [facility] records Snores Snores, occasionally snores herself awake, pt "suspects sleep apnea" denies sleep studies Spinal stenosis Surgical History History of arthroplasty of right knee (02/19/21) History of x 2 History of colonoscopy History of lumbar fusion History of ovarian cystectomy History of tonsillectomy Family History Other No family history of adverse response to anesthesia Social History Smoking Status: Never smoker Second Hand Exposure: Yes (hx); Do You Dip or Chew Tobacco: No; Tobacco Cessation Education Requested by Patient: No Hx Alcohol Use: Yes Hx Substance Use: No Preferred Language: Persian Communication Ability: Effective Communication And Outreach Manager Required: No Beliefs That Will Affect Care: None Current Living Situation: Family Other Information That Helps Us Care for You: No Feels Safe at Home: Yes Safety Concerns: Feels Safe At This Time Assistive Devices: Glasses Review of Systems Review of Systems: All systems reviewed & are unremarkable except as noted in HPI & below Constitutional: no fever, no chills and no sweats Eyes: no diplopia Ear, Nose, Mouth, Throat: no nasal congestion and no sore throat Respiratory: no cough, no dyspnea and no wheezing Cardiovascular: no chest pain, no palpitations, no syncope and no edema Gastrointestinal: no abdominal pain, no nausea, no vomiting and no diarrhea/loose stools Genitourinary: no dysuria, no urinary frequency and no hematuria Musculoskeletal: as per Subjective / HPI Integumentary: no rash and no yellowing of the skin Neurologic: no generalized weakness, no abnormal movements, no dizziness and no headache(s) Psychiatric: no depression and no anxiety Physical Exam Constitutional: well developed and well nourished; no acute distress Eyes: + anicteric sclerae Neck: trachea midline Respiratory: no respiratory distress and no labored breathing Auscultation: lungs clear to auscultation bilaterally; no rales, no rhonchi and no wheezes Cardiovascular: Rate/Rhythm: regular rate and regular rhythm Vessels: dorsalis pedis pulses present and radial pulses present Extremities: no pedal edema Gastrointestinal (Abdomen): Inspection/Auscultation: normal bowel sounds; abdomen not distended Percussion/Palpation: abdomen soft; abdomen nontender Musculoskeletal: Head/Neck/Chest: normocephalic, head atraumatic and neck supple Skin: no jaundice Neurologic: moves all extremities; not confused Psychiatric: A+Ox3, euthymic affect Results & Data Results & Data ([facility]) Vital Signs (Past 12 Hours) Vital Signs Temp Pulse Pulse Pulse Resp BP BP 04/08/21 14:40 37.1 C 85 16 104/65 04/08/21 13:40 36.9 C 88 16 109/70 04/08/21 13:35 36.4 C L 86 16 104/70 04/08/21 12:39 36.6 C 86 18 93/62 L 04/08/21 12:11 36.7 C 76 16 95/63 L 04/08/21 11:55 36.7 C 85 16 127/74 04/08/21 11:40 36.7 C 85 16 127/74 04/08/21 11:30 74 12 112/60 04/08/21 11:20 36.9 C 80 12 106/68 04/08/21 11:15 92 H 17 110/67 04/08/21 11:10 80 15 96/61 L 04/08/21 11:00 80 12 85/52 L 04/08/21 10:50 36.3 C L 89 14 82/51 L 04/08/21 06:58 37.5 C 83 20 128/77 Pulse Ox 04/08/21 14:40 94 04/08/21 13:40 98 04/08/21 13:35 90 04/08/21 12:39 94 04/08/21 12:11 92 04/08/21 11:55 90 04/08/21 11:40 90 04/08/21 11:30 97 04/08/21 11:20 98 04/08/21 11:15 97 04/08/21 11:10 100 04/08/21 11:00 100 04/08/21 10:50 96 04/08/21 06:58 95 Laboratory Results 04/08/21 04/08/21 04/08/21 06:28 06:38 07:49 POC Glucose 119 H POC Ur Test NEG SARS-CoV-2, RNA, NAAT Blood Type A Positive Antibody Screen NEGATIVE 04/08/21 Unknown POC Glucose POC Ur Test SARS-CoV-2, RNA, NAAT NEGATIVE Blood Type Antibody Screen Medications Administered Acetaminophen (Acetaminophen 500 Mg Tab) 1,000 mg PO Q8 KURT Stop: 05/08/21 13:59 Last Admin: 04/08/21 13:31 Dose: 1,000 mg Documented by: [id number] Sodium Chloride (Nss 1000ml) 1,000 mls @ 100 mls/hr IV .Q10H KURT Stop: 04/09/21 06:00 Last Admin: 04/08/21 12:11 Dose: 100 mls/hr Documented by: [id number] Ketorolac Tromethamine (Ketorolac 30 Mg/Ml Vial) 30 mg IV Q6 KURT Stop: 04/09/21 06:01 Last Admin: 04/08/21 12:11 Dose: 30 mg Documented by: [id number] Discontinued Medications Acetaminophen (Acetaminophen 500 Mg Tab) 1,000 mg PO PREOP KURT Stop: 04/08/21 18:00 Last Admin: 04/08/21 06:52 Dose: 1,000 mg Documented by: [id number] Cefazolin Sodium (Cefazolin 330 Mg/Ml 1 Gm Vial) Confirm Administered Dose 990 mg .ROUTE .STK-MED ONE Stop: 04/08/21 08:51 Last Admin: 04/08/21 09:47 Dose: 990 mg Documented by: [id number] Celecoxib (Celebrex 200 Mg Cap) 200 mg PO PREOP KURT Stop: 04/08/21 18:00 Last Admin: 04/08/21 06:52 Dose: 200 mg Documented by: [id number] Famotidine (Famotidine 20 Mg Tab) 20 mg PO PREOP KURT Stop: 04/08/21 18:00 Last Admin: 04/08/21 06:52 Dose: 20 mg Documented by: [id number] Gabapentin (Gabapentin 900 Mg Dose) 900 mg PO PREOP KURT Stop: 04/08/21 18:00 Last Admin: 04/08/21 06:52 Dose: 900 mg Documented by: [id number] Lactated Ringer's (Lr) 1,000 mls @ 15 mls/hr IV .Q24H KURT Stop: 04/08/21 18:00 Last Infusion: 04/08/21 09:10 Dose: 0 mls/hr Documented by: [id number] Admin: 04/08/21 06:53 Dose: 15 mls/hr Documented by: [id number] Cefazolin Sodium (Ancef 3000mg) 72.5 mls @ 130 mls/hr IV PREOP KURT; Protocol Stop: 04/08/21 18:00 Last Infusion: 04/08/21 12:06 Dose: 0 mls/hr Documented by: [id number] Admin: 04/08/21 09:10 Dose: 130 mls/hr Documented by: [id number] Ropivacaine 150 mg/Bupivacaine HCl 20 ml/Epinephrine HCl 0.15 mg/Ketorolac Tromethamine 30 mg/Dexamethasone 4 mg/ Ketamine HCl 10 mg/ Clonidine HCl 100 mcg/ Sodium Chloride 88.35 mls @ 0 mls/hr INSTIL TODAY@0600 [facility]; Protocol Stop: 04/08/21 06:01 Last Admin: 04/08/21 09:46 Dose: 1 mls/hr Documented by: [id number] Tranexamic Acid (Tranexamic Acid / 0.7% Nacl) 1,000 mg in 100 mls @ 600 mls/hr IV TODAY@0600 [facility] Stop: 04/08/21 18:00 Last Infusion: 04/08/21 08:40 Dose: 0 mls/hr Documented by: [id number] Admin: 04/08/21 08:28 Dose: 600 mls/hr Documented by: [id number] Tranexamic Acid (Tranexamic Acid / 0.7% Nacl) 1,000 mg in 100 mls @ 600 mls/hr IV TODAY@0600 [facility] Stop: 04/08/21 18:00 Last Infusion: 04/08/21 12:06 Dose: 0 mls/hr Documented by: [id number] Admin: 04/08/21 10:07 Dose: 600 mls/hr Documented by: [id number] Metoclopramide HCl (Metoclopramide Hcl 10 Mg Tablet) 10 mg PO PREOP [facility] Stop: 04/08/21 18:00 Last Admin: 04/08/21 06:52 Dose: 10 mg Documented by: [id number] Miscellaneous (Ortho Joint Anesthetic ) Confirm Administered Dose 1 ea .ROUTE .STK-MED ONE Stop: 04/08/21 08:50 Last Admin: 04/08/21 09:47 Dose: Not Given Documented by: [id number] Oxycodone HCl (Oxycodone Hcl 10 Mg Tabcr (Oxycontin)) 10 mg PO PREOP [facility] Stop: 04/08/21 18:00 Last Admin: 04/08/21 06:52 Dose: 10 mg Documented by: [id number]
[2021-04-08] MEDS: oxyCODONE HCL IR 5 MG TAB (IMMEDIATE RELEASE) PO PRN (16:37)
[2021-04-08] MEDS: ceFAZolin 2000MG 2,000 MG/15 ML SYR IV SCH (16:37)
[2021-04-08] MEDS ORDERED: SODIUM CHLORIDE 0.65% NA SOLN 45 ML (OCEAN) PRN (18:05)
[2021-04-08] MEDS ORDERED: SENNA 8.6 MG TAB PO SCH (21:00)
[2021-04-08] MEDS: DOCUSATE SODIUM 100 MG CAP PO SCH (21:13)
[2021-04-08] MEDS: ASPIRIN 81 MG ECTAB PO SCH (21:14)
[2021-04-09] MEDS: KETOROLAC 30 MG/ML VIAL IV SCH ×2 (01:08→06:12)
[2021-04-09] MEDS: ceFAZolin 2000MG 2,000 MG/15 ML SYR IV SCH (01:08)
[2021-04-09] MEDS: ACETAMINOPHEN 500 MG TAB PO SCH ×2 (06:11→13:49)
[2021-04-09 08:09] LABS: Hematocrit (blood only) 32.9 % (37-47); Hemoglobin 10.7 g/dL (12.0-16.0); Mean Corpuscular Hemoglobin 29.3 pg (25-34); Mean Corpuscular Hgb Conc 32.5 g/dL (32-36); Mean Corpuscular Volume 90.1 fL (80-100); Mean Platelet Volume 10.2 fL (7.4-10.4); Platelet Count 272 K/uL (130-400); RDW Coefficient of Variation 13.5 % (11.5-14.5); RDW Standard Deviation 45.3 fL (36.4-46.3); Red Blood Count 3.65 M/uL (4.2-5.4); White Blood Count 14.45 K/uL (4.8-10.8)
[2021-04-09] MEDS: DOCUSATE SODIUM 100 MG CAP PO SCH (08:19)
[2021-04-09] MEDS: ASPIRIN 81 MG ECTAB PO SCH (08:19)
[2021-04-09 08:45] LABS: BUN Creatinine Ratio 28.1 (10-20); Calcium 8.2 mg/dl (8.5-10.1); Est GFR (African American) 117.3 ml/min; Est GFR (Non-African American) 101.2 ml/min; Potassium 3.4 mmol/L (3.5-5.1)
[2021-04-09] MEDS ORDERED: PARoxetine HCL 20 MG TAB PO SCH (09:00)
[2021-04-09] MEDS ORDERED: MULTIVITAMIN TAB PO SCH (09:00)
[2021-04-09] MEDS ORDERED: CeleBREX 200 MG CAP PO SCH (09:00)
[2021-04-09] MEDS ORDERED: VALSARTAN 80 MG TAB PO SCH (09:00)
[2021-04-09] MEDS ORDERED: POTASSIUM CHLORIDE CRTAB 20 MEQ TABCR PO ONE (09:24)
--- NOTE | 2021-04-09 10:25 | Orthopedic Progress Note ---
Date of Service April 09, 2021 Assessment & Plan (1) Arthritis of right knee: Plan: POD 1 s/p Left TKA PT/OT protocol. WBAT. Discussed with PT - Pt independent with ambulation. DVT prophylaxis - ASA po bid, SCD's, JO-ANN's Pain management as written. DC planning - Services; Pt progressing well. Plan for DC today. (2) Hypokalemia: Plan: Will give one dose of K 20 meq. Plan for repeat BMP by HH Services this week. Results to be sent to PCP. Admission and Anticipated Discharge Date Admission Date: April 08, 2021 Subjective POD 1 Pt sitting at edge of bed doing her PT session. No complaints. Pain controlled at rest. Denies SOB, CP, LH. Pt is hoping she can go home today. Physical Exam Physical Exam: Dressings C/D/I. Calves soft, NT. NV intact. Toes mobile. Good DF/PF of operative foot. HV drainage 175ml from previous shift. Results & Data ([facility]) Vital Signs (Past 12 Hours) Vital Signs Temp Pulse Resp BP Pulse Ox 04/09/21 07:34 36.7 C 71 17 104/67 94 04/09/21 02:40 36.7 C 79 16 133/84 92 04/08/21 22:18 36.9 C 65 16 104/70 98 Laboratory Results Laboratory Results WBC 14.45 K/uL (4.8-10.8) H 04/09/21 07:03 RBC 3.65 M/uL (4.2-5.4) L 04/09/21 07:03 Hgb 10.7 g/dL (12.0-16.0) L 04/09/21 07:03 Hct 32.9 % (37-47) L 04/09/21 07:03 MCV 90.1 fL (80-100) 04/09/21 07:03 MCH 29.3 pg (25-34) 04/09/21 07:03 MCHC 32.5 g/dL (32-36) 04/09/21 07:03 RDW Std Deviation 45.3 fL (36.4-46.3) 04/09/21 07:03 RDW Coeff of Shady 13.5 % (11.5-14.5) 04/09/21 07:03 Plt Count 272 K/uL (130-400) 04/09/21 07:03 MPV 10.2 fL (7.4-10.4) 04/09/21 07:03 Sodium 137 mmol/L (136-145) 04/09/21 07:03 Potassium 3.4 mmol/L (3.5-5.1) L 04/09/21 07:03 Chloride 103 mmol/L (98-107) 04/09/21 07:03 Carbon Dioxide 28 mmol/L (21-32) 04/09/21 07:03 Anion Gap 6 (3-11) 04/09/21 07:03 BUN 18 mg/dl (6-23) 04/09/21 07:03 Creatinine 0.64 mg/dl (0.6-1.2) 04/09/21 07:03 Est Cr Clr Drug Dosing 135.0 ml/min 04/09/21 07:03 Est GFR ( Amer) 117.3 ml/min 04/09/21 07:03 Est GFR (Non-Af Amer) 101.2 ml/min 04/09/21 07:03 BUN/Creatinine Ratio 28.1 (10-20) H 04/09/21 07:03 Glucose 106 mg/dl (70-99(Fasting)) H 04/09/21 07:03 POC Glucose 116 mg/dl (70-99) H 04/09/21 08:09 Calcium 8.2 mg/dl (8.5-10.1) L 04/09/21 07:03 POC Ur Test NEG (NEG) 04/08/21 07:49 SARS-CoV-2, RNA, NAAT NEGATIVE (NEGATIVE) 04/08/21 Unknown Blood Type A Positive 04/08/21 06:28 Antibody Screen NEGATIVE 04/08/21 06:28 Impressions Knee X-Ray 04/08/21 10:54 LEFT KNEE 2 VIEWS History: Left total knee arthroplasty. Degenerative arthritis. Postop. FINDINGS: The patient is status post a left total knee arthroplasty. The hardware is intact. No fracture or dislocation. Surgical drains are in place. Linear lucency at the fibular neck is likely due to overlapping soft tissue. IMPRESSION: Left total knee arthroplasty. No evidence for hardware complication. ACT 112: Negative or not required by law. Electronically signed by: Gianni Orellana M.D. 04/08/2021 11:23 AM
[2021-04-09] MEDS ORDERED: POTASSIUM CHLORIDE CRTAB 20 MEQ TABCR PO STA (10:30)
[2021-04-09] MEDS: oxyCODONE HCL IR 5 MG TAB (IMMEDIATE RELEASE) PO PRN (10:47)
--- NOTE | 2021-04-09 16:05 | Hospitalist Progress Note ---
Date of Service April 09, 2021 Assessment & Plan (1) Arthritis of knee, left: Plan: POD #1 left TKA Acute blood loss, Post operative anemia Hb 10.7 today No indication for transfusion Pain control, PT/OT, DVT prophylaxis per primary team Incentive Spirometry Bowel regimen to prevent constipation Monitor CBC (2) HTN (hypertension): Plan: Continue valsartan, Hold HCTZ for now (3) Prediabetes: Plan: Last A1C = 5.8 on 01/23/21 - Diabetic diet - continue to follow with PCP outpatient (4) Morbid obesity with BMI of 45.0-49.9, adult: Plan: BMI:49 Plan: Code Status Full Code Admission and Anticipated Discharge Date Admission Date: April 08, 2021 Subjective Patient is seen and examined at bedside Doing well this morning Denies any significant pain of left knee at surgical site Had PT earlier today Denies any chest pain, SOB, dizziness, Nausea, abd pain Offers no other complaints Review of Systems Review of Systems: All systems reviewed & are unremarkable except as noted in Subjective Physical Exam Physical Exam: Physical Exam: Vitals signs as noted above General Appearance:Morbidly Obese, no apparent distress Head: normocephalic, Atraumatic Eyes: normal inspection, EOMI Neck: supple, Trachea midline Respiratory/Chest: Normal breath sounds, CTA Cardiovascular: S1, S2, No murmur Abdomen/GI:Soft, Non tender, Bowel sounds present Extremities/Musculoskeletal:normal inspection, Left knee surgical site in dressing, no edema Neurologic/Psych:AAOX3, grossly no focal neurological deficits Skin: normal color, warm Results & Data Results & Data ([facility]) Vital Signs (Past 12 Hours) Vital Signs Temp Pulse Resp BP Pulse Ox 04/09/21 11:12 37.2 C 74 17 150/78 H 96 04/09/21 07:34 36.7 C 71 17 104/67 94 Laboratory Results Short CBC 04/09/21 Range/Units 07:03 WBC 14.45 H (4.8-10.8) K/uL Hgb 10.7 L (12.0-16.0) g/dL Hct 32.9 L (37-47) % Plt Count 272 (130-400) K/uL BMP 04/09/21 07:03 Sodium 137 Potassium 3.4 L Chloride 103 Carbon Dioxide 28 BUN 18 Creatinine 0.64 Glucose 106 H Calcium 8.2 L
--- NOTE | 2021-04-10 09:09 | Discharge Summary ---
Date of Service date of discharge: April 09, 2021 Date of admission: 04-08-21 Admission HPI Per Admitting Provider Mirella is a 55 year old female who complains of left knee pain, presents for pre-op evaluation prior to a left total knee replacement by Dr Diaz at [facility]. she complains of pain and stiffness in her lef knee. Currently the patient states that the symptoms are moderate-severe and is described as aching, sharp and throbbing. her symptoms occur continuously and currently rated at 6/10. The symptoms are aggravated by ascending stairs, daily activities, first steps while awake walking. Prior NSAIDs include IBU, Meloxicam and Aleve. she has been treated with previous cortisone and visco injections in the past without much relief. Principal Diagnosis left knee arthritis Discharge Exam Musculoskeletal Left Knee: NVDI, calf SNT, negative mikala sign. DP palpable, able to wiggle toes/ankle movement without difficulty. ROCKY dressing clean dry and intact. expected post-operative bruising noted. Discharge Data Allergies Allergy/AdvReac Type Severity Reaction Status Date / Time No Known Allergies Allergy Verified 04/08/21 06:57 Consultations 04/05/21 11:52 Consult Hospitalist Routine Procedures Performed Operation Date: 04/08/21 08:35 Actual Procedures p Left Total Knee Arthroplasty(Left) - Kenneth Diaz, Ordered Studies 04/08/21 05:00 US - OR guided needle placemen Routine Hospital Course (1) Arthritis of right knee: POD 1 s/p Left TKA PT/OT protocol. WBAT. Discussed with PT - Pt independent with ambulation. DVT prophylaxis - ASA po bid, SCD's, JO-ANN's Pain management as written. DC planning - Services; (2) Hypokalemia: Will give one dose of K 20 meq. Plan for repeat BMP by HH Services this week. Results to be sent to PCP. Total Time Total Time Spent Total Time Spent (In Minutes): 20 Discharge Plan Discharge Items Patient Disposition: Home - Home Health Services Reason For Visit: Osteoarthritis, Left Knee Discharge Diagnosis: LEFT TOTAL KNEE REPLACEMENT Activity: Per Instructions section Lifting: Wait until after follow-up appointment Weightbearing: Left weightbearing Weightbearing Comment: as tolerated with walker Non-emergency contact: Surgeon Call non-emergency contact if: you have any medication questions, your pain is not controlled, you have a fever, your temperature is above 101, your wound has increased redness and your wound has increased drainage Follow-up/Referrals: Kenneth Diaz DO [Surgeon] - (Follow up in 2 weeks for your first post operative check up.) Lexis Carson PA-C [Primary Care Provider] - Diet: Regular Ambulatory Orders: Basic Metabolic Panel (Routine) Timeframe: 3 Days Location: Determined by Patient Ordered By: Buzz Bhatia Attending Provider Instructions: Your Potassium level was 3.4 (Low). A prescription was printed for you to have your blood drawn in several days to recheck your Potassium level. This will be sent to your Primary Care Physician. It is recommended you follow up with your PCP in the next week to discuss. ACTIVITY RECOMMENDATIONS: SELF CARE INSTRUCTIONS AFTER TOTAL KNEE REPLACEMENT A. You may need to continue a physical therapy program after discharge from the hospital. There are several options available to you. Your doctor will assist you in selecting the best one for you. 1. An out-patient facility 2 to 3 times a week for therapy or home therapy. 2. Continue working on all exercises taught to you in the hospital. Your goals should be to increase bending of your knee to 90 degrees and beyond and to fully straighten your knee. B. You may progress at your own pace from walking with a walker or crutches to a cane; then to no assistive devices. C. Make walking a part of your daily routine. Be up as much as comfortable with rest periods throughout the day. Rest with leg elevation is very important. Use the ice wrap frequently for the first 3-4 weeks. D. There are no restrictions on activities. You may ride in a car, shop, participate in public health dietitian and all social activities. E. Wear the long elastic stockings (JO-ANN hose) 20 hours a day for 2 weeks after surgery. They can be removed several times a day for laundering and for a bath. F. You may shower, no tub baths until cleared by your doctor. SPECIAL CARE INSTRUCTIONS: VERY IMPORTANT TO READ AND REVIEW A. There are a few signs you need to watch for after you are home. Call [facility] if you notice any of the followin. Increased severe knee pain. Some pain is expected especially when you exercise. 2. Increased swelling in your leg or knee; pain or swelling of the calf muscle in either lower leg. 3. Any fluid drainage from the incision. 4. Shortness of breath or chest pain. B. Please call [facility] at if you have any concerns or questions about your operation or recovery. The doctor or his nurse will return your call promptly. C. You must take antibiotics before dental work, bladder, bowel or other surgery. Your doctor will provide you with a permanent care to carry describing this precaution. IMPORTANT: * REMEMBER TO TAKE ASPIRIN, 81 MG, TWICE DAILY FOR 4 WEEKS UNLESS OTHERWISE DIRECTED. THIS IS YOUR BLOOD THINNER. * HIGH RISK PATIENTS MAY BE PRESCRIBED A STRONGER BLOOD THINNER. THIS WILL BE PROVIDED AT DISCHARGE. * CALL IF INCREASED PAIN, REDNESS, DRAINAGE OR FEVER GREATER THAT 101. * WEAR JO-ANN HOSE 20 HOURS PER DAY FOR 2 WEEKS. * ROCKY Dressing- This is a large suction dressing covering your incision. This will help pull any excess drainage from the wound and allow your incision to heal properly. You may shower with this if you can keep the unit outside of the shower. If any bleeding or leakage is noted please call your doctor's office. This will remain on your incision for 7 days and then should be removed. This can be done yourself or by the home nursing staff if applicable. The entire unit is disposable once removed. Once removed, keep incision clean and dry. If redness or drainage is noted, please call your surgeon. ONCE ROCKY IS REMOVED, FOLLOW THESE INSTRUCTIONS: DERMABOND Prineo- This is a mesh tape dressing that is covered with glue. It should remain in place until the incision is properly healed, usually 10-14 days. This dressing is designed to naturally slough off. You may trim the excess mesh tape as it peels off. Incision may be briefly wet in a shower. Dry immediately by blotting with a clean, dry towel. Do not bath or swim until instructed by your doctor. Do not scratch, rub, or pick at the dressing. Do not apply any topical ointments or lotions until dressing is completely removed and/or instructed by your doctor. There may be a small piece of suture material at one end of your incision. Do not pull or trim this. If it is bothersome or catching on clothing, you may cover it with a band-aid. IF INCISION IS LEAKING THROUGH DRESSING, CALL THE OFFICE . FOLLOW UP VISIT: If appointment is not already scheduled: Please call [facility] to make a follow-up appointment for 2 weeks after your surgery at . Stand-Alone Forms: [facility] Medications and DC Order Prescriptions: New celecoxib [Celebrex] 200 mg Capsule 200 mg PO BID 14 Days Qty: 28 RF: 0 aspirin 81 mg Tablet,Delayed Release (Dr/Ec) 81 mg PO BID 30 Days Qty: 60 RF: 0 acetaminophen [Tylenol Extra Strength] 500 mg Tablet 1,000 mg PO Q8 14 Days Qty: 84 RF: 0 cefadroxil 500 mg capsule 500 mg PO BID Qty: 28 RF: 1 oxycodone 5 mg Tablet 5 mg PO Q4H MDD 6 PRN (Reason: pain) Qty: 30 RF: 0 Continued valsartan 160 mg Capsule 160 mg PO QAM RF: 0 polyethylene glycol 3350 [Miralax] 17 gram powder in packet 17 g PO DAILY PRN (Reason: constipation) Qty: 5 RF: 0 paroxetine HCl 20 mg Tablet 20 mg PO QAM RF: 0 hydrochlorothiazide 25 mg Tablet 25 mg PO QAM RF: 0 Discharge Orders: Discharge Order (Routine); Ordered 04/09/21 Ordered By: Buzz Tamayo/Other Patient Handouts: DVT Post Op Prevention Admission Data Admit Date/Time: 04/08/21 10:54 Attending Provider: Kenneth Diaz Admit Provider: Kenneth Diaz Primary Care Provider: Lexis Carson Other Providers: Robert Vázquez ; [facility] ; [facility] Other Interventions: Discharge Summary Assessment (RN) Last Done: 04/09/21 12:37
== END 2021-04-09 16:18 | disposition home health service (06) ==
LOC: ASU 06:16 → 3N 06:16